=== PATIENT | female | born 1965 | race Caucasian/White ===

== ENCOUNTER 2024-01-05 14:21 | Outpatient (CLI) | payer BC, SELFPAY ==
--- NOTE | 2024-01-05 14:40 | CRLHL7_ITS ---
For Patients: As a result of the Century Cures Act, medical imaging exams and procedure reports are released immediately into your electronic medical record. You may view this report before your referring provider. If you have questions, please contact your health care provider. BILATERAL SCREENING MAMMOGRAM WITH COMPUTER-AIDED DETECTION AND TOMOSYNTHESIS TECHNIQUE: CC and MLO views were obtained. These mammographic images have been obtained using full-field digital technique. These mammographic images were interpreted with the benefit of computer-aided detection. Breast Tomosynthesis was used in this interpretation. COMPARISON FILM: 01/01/21, 12/05/22, 01/15/22. FINDINGS: The breasts are heterogeneously dense, which may obscure small masses IMPRESSION: There is no radiographic evidence for malignancy. ASSESSMENT: BI-RADS Category 2: Benign RECOMMENDATION: Routine screening mammogram in 1 year. A lay language report of this examination will be provided to the patient. LIONEL SOLORZANO M.D. Diagnostic/Nuclear Medicine Radiologist [email or web address] JMN:[email or web address]/Dictated by: Lionel Solorzano MD @ 01/07/2024 9:02:00 AM (Electronically Signed)
== END 2024-01-05 14:22 | disposition home or self-care (01) ==
LOC: MAMMO 14:22
PROVIDERS: PCP Physician Assistant; Visit Provider Physician Assistant
DX: Z12.31 Encounter for screening mammogram for malignant neoplasm of breast (principal); R92.2 Inconclusive mammogram
CPT/HCPCS: 77063; 77067

== ENCOUNTER 2025-02-13 14:18 | Outpatient (CLI) | payer BC, SELFPAY ==
--- NOTE | 2025-02-13 14:40 | CRLHL7_ITS ---
For Patients: As a result of the Century Cures Act, medical imaging exams and procedure reports are released immediately into your electronic medical record. You may view this report before your referring provider. If you have questions, please contact your health care provider. BILATERAL DIGITAL SCREENING MAMMOGRAM WITH COMPUTER-AIDED DETECTION AND TOMOSYNTHESIS CLINICAL HISTORY: Routine screening exam. COMPARISON: Mammogram 01/05/2024, 12/05/2022 and 01/15/2022 TECHNIQUE: Digital mammogram in CC and MLO projections including computer-aided detection (CAD) and tomosynthesis. BREAST COMPOSITION: There are scattered areas of fibroglandular density. FINDINGS: RIGHT Breast: No suspicious findings. LEFT Breast: There is an asymmetry in the lateral breast, middle depth. IMPRESSION: LEFT breast asymmetry. RECOMMENDATIONS: Additional mammographic views of the LEFT breast including 90 degree lateral, spot compression CC. LEFT breast ultrasound may also be required. A member of the health care team will contact the patient to schedule the required additional imaging appointment(s). BI-RADS Category 0: Incomplete: Need Additional Imaging Evaluation Dictated by Constance Shepard MD @ 02/16/2025 9:07:35 AM Dictated by: Constance Shepard MD @ 02/16/2025 09:08:26 (Electronically Signed)
== END 2025-02-13 14:19 | disposition home or self-care (01) ==
LOC: MAMMO 14:20
PROVIDERS: PCP Physician Assistant; Visit Provider Physician Assistant
DX: Z12.31 Encounter for screening mammogram for malignant neoplasm of breast (principal); N63.20 Unspecified lump in the left breast, unspecified quadrant
CPT/HCPCS: 77063; 77067

== ENCOUNTER 2025-02-27 10:22 | Outpatient (CLI) | payer BC, SELFPAY ==
--- NOTE | 2025-02-27 10:45 | CRLHL7_ITS ---
For Patients: As a result of the Cures Act, medical imaging exams and procedure reports are released immediately into your electronic medical record. You may view this report before your referring provider. If you have questions, please contact your health care provider. DIGITAL DIAGNOSTIC LEFT MAMMOGRAM USING TOMOSYNTHESIS LEFT BREAST ULTRASOUND CLINICAL HISTORY: LEFT breast mass/asymmetry. COMPARISON: 02/13/2025, 01/05/2024, 12/05/2022. TECHNIQUE: Digital LEFT mammogram in two projections. Tomosynthesis was used in this interpretation. Real-time ultrasound imaging of LEFT breast with imaging documentation. Scanning was performed by both the technologist and the radiologist. BREAST COMPOSITION: The breast is heterogeneously dense, which may obscure small masses. FINDINGS: 3D true lateral and 3D spot compression CC LEFT breast mammogram images submitted. Nodular density within the lateral LEFT breast noted. No architectural distortion. Benign calcifications. Targeted LEFT breast ultrasound performed. At 3 o`clock 4 cm from the nipple, there is a simple circumscribed anechoic cyst which measures 6 millimeters. No solid masses. Multiple smaller cysts are present elsewhere. IMPRESSION: Benign fibrocystic changes including a 6 millimeter cyst LEFT breast 3 o`clock 4 cm from the nipple. No suspicious findings. No evidence of malignancy. RECOMMENDATIONS: Routine screening mammography. A lay language report of this examination will be provided to the patient. BI-RADS Category 2: Benign Dictated by Igor Meyers MD @ 02/27/2025 11:48:45 AM jj/Dictated by: Igor Meyers MD @ 02/27/2025 11:48:00 AM (Electronically Signed)
--- NOTE | 2025-02-27 11:15 | CRLHL7_ITS ---
For Patients: As a result of the Century Cures Act, medical imaging exams and procedure reports are released immediately into your electronic medical record. You may view this report before your referring provider. If you have questions, please contact your health care provider. SEE DIGITAL DIAGNOSTIC LEFT MAMMOGRAM PERFORMED SAME DAY CRL:[email or web address]/Dictated by: Igor Meyers MD @ 02/27/2025 11:48:00 AM (Electronically Signed)
== END 2025-02-27 10:23 | disposition home or self-care (01) ==
LOC: MAMMO 10:23
PROVIDERS: PCP Physician Assistant; Visit Provider Physician Assistant
DX: N63.20 Unspecified lump in the left breast, unspecified quadrant (principal)
CPT/HCPCS: 76642; 77065; G0279